=== PATIENT | male | born 1965 | race Caucasian/White ===

== ENCOUNTER 2023-05-07 11:31 | Emergency (ER) | payer MEDICARE, MEDICAID ==
[~2023-05-07] VITALS: Ht 162.6 cm; Wt 63.5 kg
[2023-05-07 11:45] VITALS: BP_SYST 119; PULSE 100; RESP 18; TEMP 98.2; O2SAT 100
[2023-05-07] MEDS ORDERED: MORPHINE 4 MG INJ. 4 MG/ML VIAL IM ONE (11:45)
[2023-05-07] MEDS ORDERED: IBUP-1971 PO (13:45)
[2023-05-07 15:06] VITALS: BP_SYST 145; PULSE 72; RESP 16; TEMP 97.1; O2SAT 99
== END 2023-05-07 15:09 | disposition home or self-care (01) ==
LOC: SED 11:31
DX: S33.5XXA Sprain of ligaments of lumbar spine, initial encounter (principal); M25.511 Pain in right shoulder; F17.200 Nicotine dependence, unspecified, uncomplicated; Z79.899 Other long term (current) drug therapy; W10.9XXA Fall (on) (from) unspecified stairs and steps, initial encounter; Y93.89 Activity, other specified; Y92.89 Other specified places as the place of occurrence of the external cause; Y99.8 Other external cause status
CPT/HCPCS: 99285; 72131; 73030; 76376; 96372; J2270